=== PATIENT | female | born 1985 | race Caucasian/White ===

== ENCOUNTER 2019-09-13 07:49 | Emergency (ER) | payer MEDICAID ==
[~2019-09-13] VITALS: Ht 165.1 cm; Wt 55.0 kg
[2019-09-13] MEDS ORDERED: SODIUM CHLORIDE 0.9% 2,000 ML IV ONE (08:56)
[2019-09-13 09:10] LABS: BASOPHILS % 0.5 % (0.0-2.0); EOSINOPHILS % 0.1 % (0.0-5.0); HEMATOCRIT. 36.4 % (36.0-48.0); LYMPHOCYTES % 15.1 % (20.0-50.0); MEAN CORPUSCULAR HEMOGLOBIN 26.3 pg (28.0-32.0); MEAN CORPUSCULAR VOLUME 79.4 fL (81.0-99.0); MEAN PLATELET VOLUME 8.4 fl (7.4-10.4); MONOCYTES % 10.6 % (2.0-8.0); NEUTROPHILS % 73.7 % (40.0-76.0); PLATELET 146 x1000/uL (130-400); RED BLOOD CELL COUNT 4.58 mill/uL (4.2-5.4); RED CELL DISTRIBUTION WIDTH 13.5 % (11.6-14.6)
[2019-09-13 09:16] LABS: CHLORIDE 98 mEq/L (98-107)
[2019-09-13 09:25] LABS: BETA HYDROXYBUTYRATE 0.2 mMol/L (0.0-0.3)
[2019-09-13] MEDS ORDERED: POTASSIUM CHLORIDE 20MEQ TABLET SR PO ONE (09:30)
[2019-09-13] MEDS ORDERED: SODIUM CHLORIDE 0.9% 1,000 ML IV ONE (09:30)
[2019-09-13] MEDS ORDERED: INSULIN REGULAR (HUMULIN R) 300UNITS/3ML SUBCUT ONE (09:30)
[2019-09-13 14:08] VITALS: BP 127/80
== END 2019-09-13 14:09 | disposition home or self-care (01) ==
LOC: ER 07:49
DX: E11.65 Type 2 diabetes mellitus with hyperglycemia (principal)
CPT/HCPCS: 36415; 80053; 82010; 82962; 83036; 85025; 93005; 96372; 99284; J1815; J7030

== ENCOUNTER 2022-03-14 05:02 | Inpatient (IN) | payer MEDICAID, OTHER ==
[~2022-03-14] VITALS: Ht 162.6 cm; Wt 72.6 kg
[2022-03-14] MEDS ORDERED: DEXTROSE 50% WATER 50ML SYRINGE IV ONE ×2 (05:30→05:31)
[2022-03-14] MEDS ORDERED: IOHEXOL-350 100 ML BOTTLE ONE (06:01)
[2022-03-14 06:23] LABS: BASOPHILS % 0.5 % (0.0-2.0); EOSINOPHILS % 0.7 % (0.0-5.0); HEMATOCRIT. 28.2 % (36.0-48.0); HEMOGLOBIN. 8.8 g/dL (12.0-16.0); LYMPHOCYTES % 15.9 % (20.0-50.0); MEAN CORPUSCULAR HEMOGLOBIN 22.4 pg (28.0-32.0); MEAN CORPUSCULAR VOLUME 71.7 fL (81.0-99.0); MEAN PLATELET VOLUME 7.2 fl (7.4-10.4); MONOCYTES % 5.9 % (2.0-8.0); PLATELET 305 x1000/uL (130-400); RED BLOOD CELL COUNT 3.93 mill/uL (4.2-5.4); RED CELL DISTRIBUTION WIDTH 14.9 % (11.6-14.6)
[2022-03-14 06:31] LABS: INR 0.9; PROTHROMBIN TIME 10.2 sec (9.6-11.0)
[2022-03-14 06:33] LABS: CHLORIDE 108 mEq/L (98-107)
[2022-03-14 06:43] LABS: HCG SCREEN NEGATIVE
[2022-03-14 06:44] LABS: ETHANOL BLOOD < 10 mg/dL
[2022-03-14] MEDS ORDERED: SODIUM CHLORIDE 0.9% 1000ML BAG (SEPSIS BOLUS) IV ONE (07:00)
[2022-03-14 07:25] LABS: CLARITY URINE TURBID (CLEAR); COLOR URINE DARK YELLOW (YELLOW); KETONES URINE NEGATIVE (NEGATIVE); LEUKOCYTE ESTERASE URINE TRACE (NEGATIVE); NITRITE URINE NEGATIVE (NEGATIVE); OCCULT BLOOD URINE 3+ (NEGATIVE); PH URINE 7.5 (4.5-8.0); PROTEIN URINE 3+ (NEGATIVE); SPECIFIC GRAVITY URINE 1.014 (1.005-1.030)
[2022-03-14] MEDS ORDERED: NITROGLYCERIN 0.4MG TABLET SL SL PRN (07:30)
[2022-03-14] MEDS ORDERED: ONDANSETRON HCL 4MG/2ML INJ IV PRN (07:30)
[2022-03-14] MEDS ORDERED: DEXTROSE 50% WATER 50ML SYRINGE IV PRN (07:30)
[2022-03-14] MEDS ORDERED: CLONIDINE 0.1MG TABLET PO PRN (07:30)
[2022-03-14] MEDS ORDERED: ACETAMINOPHEN 325MG TABLET PO PRN ×2 (07:30)
[2022-03-14] MEDS ORDERED: GUAIFENESIN 200MG/10ML SUGAR FREE UDC PO PRN (07:30)
[2022-03-14] MEDS ORDERED: KETOROLAC 15MG/ML VIAL IV PRN (07:30)
[2022-03-14] MEDS ORDERED: IPRATROPIUM/ALBUTEROL 0.5-3(2.5)MG/3ML NEB NEB PRN (07:30)
[2022-03-14 07:41] LABS: *AMPHETAMINES SCREEN URINE NEGATIVE (NEGATIVE); *BARBITURATES SCREEN URINE NEGATIVE (NEGATIVE); *BENZODIAZEPINES SCREEN URINE NEGATIVE (NEGATIVE); *COCAINE SCREEN URINE NEGATIVE (NEGATIVE); CANNABINOID URINE SCREEN NEGATIVE (NEGATIVE); METHADONE URINE SCREEN NEGATIVE (NEGATIVE); OPIATES URINE SCREEN NEGATIVE (NEGATIVE); PHENCYCLIDINE URINE SCREEN NEGATIVE (NEGATIVE)
[2022-03-14] MEDS ORDERED: CEFTRIAXONE 2 G PREMIX 50 ML IV ONE (08:15)
[2022-03-14] MEDS: INSULIN LISPRO 100 UNITS/ML SUBCUT SCH ×4 (08:20→21:00)
[2022-03-14] MEDS ORDERED: DOCUSATE SODIUM 100MG CAPSULE PO PRN (09:00)
[2022-03-14] MEDS ORDERED: MAGNESIUM/ALUMINUM HYDROXIDE/SIMETHICONE 30ML UDC PO PRN (09:00)
[2022-03-14] MEDS ORDERED: CEFTRIAXONE 2 G in DEXTROSE 5% WATER 50 ML IV SCH (09:00)
[2022-03-14 09:01] LABS: T4 FREE 1.16 ng/dL (0.76-1.46)
[2022-03-14 09:23] LABS: VITAMIN B12 SERUM 336 pg/mL (211-911)
[2022-03-14] MEDS: BLOOD SUGAR DIAGNOSTIC STRIP TEST SCH ×4 (10:17→21:42)
[2022-03-14] MEDS: FAMOTIDINE 20MG TABLET PO SCH ×2 (10:59→20:54)
[2022-03-14] MEDS: ENOXAPARIN 40MG/0.4ML SYR SUBCUT SCH (10:59)
[2022-03-14] MEDS: AMLODIPINE 10MG TABLET PO SCH (10:59)
[2022-03-14] MEDS: ASPIRIN 325MG EC TABLET PO SCH (10:59)
[2022-03-14 14:01] VITALS: BP 141/51
[2022-03-14] MEDS ORDERED: INSU100I28 SQ (14:18)
[2022-03-14] MEDS ORDERED: INSLIS SUBCUT (14:18)
[2022-03-14] MEDS ORDERED: METF500T60 PO (14:18)
[2022-03-14] MEDS ORDERED: ATOR20TA65 PO (14:18)
[2022-03-14] MEDS ORDERED: LISI20TA31 PO (14:18)
[2022-03-14] MEDS ORDERED: FERR15DR7 PO (14:18)
[2022-03-14 14:30] VITALS: BP 141/51
[2022-03-14 16:00] VITALS: BP 150/65
[2022-03-14] MEDS ORDERED: IPRATROPIUM BROMIDE (0.02%) 0.5MG/2.5ML NEB HHN PRN (18:15)
[2022-03-14] MEDS ORDERED: ALBUTEROL (0.083%) 2.5MG/3ML NEB HHN PRN (18:15)
[2022-03-14 20:00] VITALS: BP 121/58
[2022-03-14] MEDS ORDERED: TIMO5DRO32 EACHEYE (20:07)
[2022-03-14] MEDS ORDERED: BRIN8DRO RIGHTEYE (20:07)
[2022-03-14] MEDS ORDERED: PRED5DRO22 RIGHTEYE (20:07)
[2022-03-14] MEDS ORDERED: OFLO5DRO3 RIGHTEYE (20:07)
[2022-03-14] MEDS ORDERED: BIMA2.5D4 RIGHTEYE (20:07)
[2022-03-14] MEDS ORDERED: NON FORMULARY PATIENT HOME MED XX SCH ×2 (20:30)
[2022-03-14] MEDS ORDERED: ZOLPIDEM TARTRATE 5MG TABLET PO PRN (21:00)
[2022-03-14] MEDS: TIMOLOL MALEATE 0.5% OPHTH DROPS 5ML RIGHTEYE SCH (21:40)
[2022-03-14] MEDS: PREDNISOLONE ACETATE 1% OPHTH DROPS 5ML RIGHTEYE SCH (21:40)
[2022-03-15] VITALS: BP_SYST 119; BP_SYST 141; BP_DIAS 61; BP_DIAS 78
[2022-03-15 00:16] LABS: CREATINE KINASE MB FRACTION 3.1 ng/mL (0.5-3.6)
[2022-03-15 04:00] VITALS: BP 110/58
[2022-03-15] MEDS: INSULIN LISPRO 100 UNITS/ML SUBCUT SCH (05:39)
[2022-03-15] MEDS: BLOOD SUGAR DIAGNOSTIC STRIP TEST SCH (05:40)
[2022-03-15 08:00] VITALS: BP 119/50
[2022-03-15 08:07] LABS: BASOPHILS % 0.6 % (0.0-2.0); EOSINOPHILS % 0.9 % (0.0-5.0); LYMPHOCYTES % 26.9 % (20.0-50.0); MEAN CORPUSCULAR HEMOGLOBIN 22.2 pg (28.0-32.0); MEAN CORPUSCULAR VOLUME 70.1 fL (81.0-99.0); MEAN PLATELET VOLUME 7.2 fl (7.4-10.4); MONOCYTES % 7.8 % (2.0-8.0); NEUTROPHILS % 63.8 % (40.0-76.0); PLATELET 266 x1000/uL (130-400); RED BLOOD CELL COUNT 3.13 mill/uL (4.2-5.4); RED CELL DISTRIBUTION WIDTH 14.5 % (11.6-14.6)
[2022-03-15 08:24] LABS: CHLORIDE 112 mEq/L (98-107)
[2022-03-15 08:37] LABS: PHOSPHORUS 3.6 mg/dL (2.5-4.9)
[2022-03-15] MEDS ORDERED: INSLIS SUBCUT (08:37)
[2022-03-15] MEDS: FAMOTIDINE 20MG TABLET PO SCH (08:45)
[2022-03-15] MEDS: ASPIRIN 325MG EC TABLET PO SCH (08:45)
[2022-03-15] MEDS: ENOXAPARIN 40MG/0.4ML SYR SUBCUT SCH (08:47)
[2022-03-15] MEDS: PREDNISOLONE ACETATE 1% OPHTH DROPS 5ML RIGHTEYE SCH (08:50)
[2022-03-15] MEDS: AMLODIPINE 10MG TABLET PO SCH (08:50)
[2022-03-15] MEDS: TIMOLOL MALEATE 0.5% OPHTH DROPS 5ML RIGHTEYE SCH (08:51)
[2022-03-15] MEDS ORDERED: NON FORMULARY PATIENT HOME MED XX SCH (09:00)
[2022-03-15 09:56] VITALS: BP 119/50
[2022-03-15] MEDS ORDERED: IRON SUCROSE COMPLEX 100 MG/5 ML ML IV SCH (10:00)
== END 2022-03-15 11:25 | disposition home or self-care (01) | DRG 420 ==
LOC: ER 05:02 → 8WST 06:21 → EDBEDREQSVC 09:16
PROVIDERS: ADMIT Internal Medicine; ATTEND Internal Medicine
DX: E11.649 Type 2 diabetes mellitus with hypoglycemia without coma (principal); G93.41 Metabolic encephalopathy; E43 Unspecified severe protein-calorie malnutrition; I50.30 Unspecified diastolic (congestive) heart failure; I11.0 Hypertensive heart disease with heart failure; Z20.822 Contact with and (suspected) exposure to COVID-19; D63.8 Anemia in other chronic diseases classified elsewhere; E11.65 Type 2 diabetes mellitus with hyperglycemia; Z79.4 Long term (current) use of insulin; Z68.27 Body mass index [BMI] 27.0-27.9, adult; Z82.49 Family history of ischemic heart disease and other diseases of the circulatory system
CPT/HCPCS: 36415; 70496; 70551; 71045; 80053; 80061; 80305; 80320; 81003; 82550; 82553; 82607; 82746; 82962; 83036; 83540; 83550; 83605; 83735; 83880; 84100; 84439; 84443; 84484; 84703; 85025; 87426; 93005; 93306; 93970; 99291; J0696; J1650; J7030; J7060; Q9967; G0480

== ENCOUNTER 2022-04-11 19:19 | Emergency (ER) | payer OTHER ==
[~2022-04-11] VITALS: Ht 165.1 cm; Wt 70.0 kg
[~2022-04-11 19:19] MED LIST: ATOR20TA65 PO; BIMA2.5D4 RIGHTEYE; BRIN8DRO RIGHTEYE; FERR15DR7 PO; INSLIS SUBCUT; INSU100I28 SQ; LISI20TA31 PO; METF500T60 PO; PRED5DRO22 RIGHTEYE; TIMO5DRO32 EACHEYE
[2022-04-11 19:25] VITALS: BP 165/89
== END 2022-04-12 | disposition left against medical advice (07) ==
LOC: ER 19:19
DX: Z53.21 Procedure and treatment not carried out due to patient leaving prior to being seen by health care provider (principal); E11.9 Type 2 diabetes mellitus without complications
CPT/HCPCS: 82962

== ENCOUNTER 2023-06-25 01:13 | Inpatient (IN) | payer MEDICAID, OTHER ==
[~2023-06-25] VITALS: Ht 309.9 cm; Wt 78.0 kg
[2023-06-25 02:31] LABS: DIFFERENTIAL COMMENT 0; EOSINOPHILS % 1.3 % (0.0-5.0); HEMOGLOBIN. 8.4 g/dL (12.0-16.0); LYMPHOCYTES % 23.7 % (20.0-50.0); MEAN CORPUSCULAR HEMOGLOBIN 23.1 pg (28.0-32.0); MEAN CORPUSCULAR HGB CONC 31.2 g/dL (31.0-37.0); MEAN CORPUSCULAR VOLUME 73.9 fL (81.0-99.0); MEAN PLATELET VOLUME 8.2 fl (7.4-10.4); MONOCYTES % 10.1 % (2.0-8.0); NEUTROPHILS % 63.9 % (40.0-76.0); PLATELET 137 x1000/uL (130-400); RED BLOOD CELL COUNT 3.66 mill/uL (4.2-5.4); RED CELL DISTRIBUTION WIDTH 17.5 % (11.6-14.6); WHITE BLOOD COUNT 4.2 x1000/uL (4.5-11.0)
[2023-06-25 02:33] LABS: CHLORIDE 110 mEq/L (98-107); POTASSIUM 3.7 mEq/L (3.5-5.1); SODIUM 139 mEq/L (136-145)
[2023-06-25 02:34] LABS: CARBON DIOXIDE 23 mEq/L (21-32)
[2023-06-25 02:35] LABS: CALCIUM 8.1 mg/dL (8.7-10.4); HCG SCREEN NEGATIVE
[2023-06-25 02:38] LABS: BG BASE EXCESS -4.4 mmol/L (-2.0-2.0); BG CARBOXYHEMOGLOBIN 0.1 % (0.5-1.5); BG DEOXYHEMOGLOBIN 5.8 % (0.0-5.0); BG FRACTION INSPIRED OXYGEN 21; BG HCO3 ACT 20.9 mmol/L (22.0-26.0); BG METHEMOGLOBIN 0.3 % (0.0-1.5); BG OXYGEN SATURATION 94.2 % (92.0-98.5); BG OXYHEMOGLOBIN 93.8 % (94.0-97.0); BG PCO2 39.2 mmHg (35.0-45.0); BG PH 7.344 (7.350-7.450); BG PO2 74.4 mmHg (75.0-100.0); BG SAMPLE SITE LEFT RADIAL; BG TOTAL HEMOGLOBIN 8.8 g/dL (12.0-18.0); BG VENT MODE ROOM AIR
[2023-06-25 02:39] LABS: CREATININE 2.2 mg/dL (0.6-1.0); GLUCOSE 149 mg/dL (70-105)
[2023-06-25 02:40] LABS: UREA NITROGEN BLOOD 26 mg/dL (9-23)
[2023-06-25 02:51] LABS: TROPONIN I HIGH SENSITIVITY 42 ng/L (3.0-34)
[2023-06-25] MEDS: FUROSEMIDE 40MG/4ML VIAL IV ONE (03:13)
[2023-06-25 04:49] LABS: TROPONIN I HIGH SENSITIVITY 38 ng/L (3.0-34)
[2023-06-25 11:00] VITALS: BP 149/93; PULSE 66; RESP 19; TEMP 97.7
[2023-06-25 12:00] VITALS: BP 149/93; PULSE 66; RESP 18; TEMP 97.7
[2023-06-25] MEDS ORDERED: ONDANSETRON HCL 4MG/2ML INJ IV PRN (12:00)
[2023-06-25] MEDS ORDERED: ACETAMINOPHEN 325MG TABLET PO PRN (12:00)
[2023-06-25] MEDS: FUROSEMIDE 40MG/4ML VIAL IVP SCH (12:45)
[2023-06-25] MEDS: AMLODIPINE 10MG TABLET PO SCH (12:45)
[2023-06-25] MEDS ORDERED: DEXTROSE 50% WATER 50ML SYRINGE IV PRN (13:30)
[2023-06-25] MEDS: INSULIN LISPRO 100 UNITS/ML SUBCUT SCH (13:30)
[2023-06-25] MEDS: BLOOD SUGAR DIAGNOSTIC STRIP TEST SCH (13:30)
[2023-06-25 16:00] VITALS: BP 149/101; PULSE 68; RESP 14; TEMP 97.9
[2023-06-25 18:03] LABS: HEPATITIS B SURFACE ANTIGEN NEGATIVE (Negative)
[2023-06-25 18:25] LABS: HEPATITIS C AB NON REACTIVE (Neg) (Negative)
[2023-06-25 20:00] VITALS: BP 153/58; PULSE 66; RESP 14; TEMP 98
[2023-06-26 00:05] VITALS: BP 137/69; PULSE 70; RESP 24; TEMP 98.1
[2023-06-26 04:00] VITALS: BP 133/73; PULSE 70; RESP 20; TEMP 98
[2023-06-26 05:50] LABS: CLARITY URINE CLOUDY (CLEAR); COLOR URINE DARK YELLOW (YELLOW); GLUCOSE URINE 1+ (NEGATIVE); KETONES URINE NEGATIVE (NEGATIVE); LEUKOCYTE ESTERASE URINE TRACE (NEGATIVE); NITRITE URINE NEGATIVE (NEGATIVE); OCCULT BLOOD URINE 2+ (NEGATIVE); PROTEIN URINE 3+ (NEGATIVE); SPECIFIC GRAVITY URINE 1.011 (1.005-1.030); UROBILINOGEN URINE 0.2 E.U./dL (0.2-1.0)
[2023-06-26 06:34] LABS: SQUAMOUS EPITHELIAL CELL URINE 1+ /lpf (RARE/1+)
[2023-06-26 06:35] LABS: BACTERIA URINE 2+
[2023-06-26 06:36] LABS: YEAST URINE 2+
[2023-06-26 07:12] LABS: POTASSIUM 3.8 mEq/L (3.5-5.1)
[2023-06-26 07:18] LABS: CREATININE 1.9 mg/dL (0.6-1.0)
[2023-06-26 08:00] VITALS: BP 155/73; PULSE 68; RESP 14; TEMP 97.7
[2023-06-26 11:31] LABS: CREATINE KINASE 129 IU/L (34-145)
[2023-06-26 12:00] VITALS: BP 148/93; PULSE 66; RESP 16; TEMP 98
[2023-06-26 15:05] LABS: CREATININE URINE RANDOM 28.1 mg/dL
[2023-06-26 16:00] VITALS: BP 124/76; PULSE 63; RESP 15; TEMP 98
[2023-06-26 20:00] VITALS: BP 137/80; PULSE 64; RESP 16; TEMP 98.1
[2023-06-27] VITALS: BP 124/68; PULSE 65; RESP 12; TEMP 98
[2023-06-27 04:50] VITALS: BP 151/75; PULSE 67; RESP 23; TEMP 98.1
[2023-06-27 07:28] LABS: POTASSIUM 3.6 mEq/L (3.5-5.1)
[2023-06-27 07:29] LABS: CALCIUM 7.7 mg/dL (8.7-10.4)
[2023-06-27 07:34] LABS: CREATININE 1.6 mg/dL (0.6-1.0)
[2023-06-27 07:35] LABS: ALBUMIN 2.7 g/dL (3.2-4.8)
[2023-06-27 07:37] LABS: BASOPHILS % 1.1 % (0.0-2.0); DIFFERENTIAL COMMENT 0; EOSINOPHILS % 3.9 % (0.0-5.0); HEMATOCRIT. 27.2 % (36.0-48.0); HEMOGLOBIN. 8.5 g/dL (12.0-16.0); LYMPHOCYTES % 26.7 % (20.0-50.0); MEAN CORPUSCULAR HEMOGLOBIN 23.2 pg (28.0-32.0); MEAN CORPUSCULAR HGB CONC 31.2 g/dL (31.0-37.0); MEAN CORPUSCULAR VOLUME 74.2 fL (81.0-99.0); MEAN PLATELET VOLUME 7.7 fl (7.4-10.4); MONOCYTES % 8.1 % (2.0-8.0); NEUTROPHILS % 60.2 % (40.0-76.0); PLATELET 143 x1000/uL (130-400); RED BLOOD CELL COUNT 3.67 mill/uL (4.2-5.4); RED CELL DISTRIBUTION WIDTH 18.6 % (11.6-14.6); WHITE BLOOD COUNT 4.7 x1000/uL (4.5-11.0)
[2023-06-27 08:00] VITALS: BP 147/64; PULSE 70; RESP 10; TEMP 98
[2023-06-27] MEDS: LOSARTAN 50 MG TABLET PO SCH (09:29)
[2023-06-27] MEDS: POTASSIUM CHLORIDE 20MEQ/PACKET PO SCH (09:29)
[2023-06-27 12:00] VITALS: BP 145/79; PULSE 71; RESP 13; TEMP 98.2
[2023-06-27] MEDS: CEFTRIAXONE 1GM/50ML 50 ML IV SCH (15:59)
[2023-06-27 16:00] VITALS: BP 115/68; PULSE 68; RESP 14; TEMP 98.3
[2023-06-27 20:00] VITALS: BP 135/73; PULSE 71; RESP 17; TEMP 97.7
[2023-06-27] MEDS: INSULIN GLARGINE 100 UNITS/ML SUBCUT SCH (22:22)
[2023-06-28] VITALS: BP 135/71; PULSE 71; RESP 11; TEMP 97.8
[2023-06-28 04:00] VITALS: BP 138/77; PULSE 73; RESP 15; TEMP 97.8
[2023-06-28 07:05] LABS: BASOPHILS % 0.9 % (0.0-2.0); DIFFERENTIAL COMMENT 0; EOSINOPHILS % 3.9 % (0.0-5.0); HEMATOCRIT. 26.7 % (36.0-48.0); HEMOGLOBIN. 8.3 g/dL (12.0-16.0); LYMPHOCYTES % 20.5 % (20.0-50.0); MEAN CORPUSCULAR HEMOGLOBIN 23.3 pg (28.0-32.0); MEAN CORPUSCULAR HGB CONC 31.2 g/dL (31.0-37.0); MEAN CORPUSCULAR VOLUME 74.4 fL (81.0-99.0); MEAN PLATELET VOLUME 7.5 fl (7.4-10.4); MONOCYTES % 7.1 % (2.0-8.0); NEUTROPHILS % 67.6 % (40.0-76.0); PLATELET 168 x1000/uL (130-400); RED BLOOD CELL COUNT 3.59 mill/uL (4.2-5.4); WHITE BLOOD COUNT 5.2 x1000/uL (4.5-11.0)
[2023-06-28 07:11] LABS: CHLORIDE 110 mEq/L (98-107); SODIUM 141 mEq/L (136-145)
[2023-06-28 07:12] LABS: CARBON DIOXIDE 25 mEq/L (21-32)
[2023-06-28 07:17] LABS: CREATININE 1.2 mg/dL (0.6-1.0); GLUCOSE 168 mg/dL (70-105); UREA NITROGEN BLOOD 23 mg/dL (9-23)
[2023-06-28 08:00] VITALS: BP 127/67; PULSE 78; RESP 16; TEMP 97.9
[2023-06-28] MEDS ORDERED: LOSA50TA41 PO (10:07)
[2023-06-28] MEDS ORDERED: AMLO10TA80 PO (10:07)
[2023-06-28 10:20] VITALS: BP 127/67; PULSE 74; TEMP 98.2; O2SAT 98
[2023-06-29 09:06] LABS: COMPLEMENT C3 160 mg/dL (82-167); COMPLEMENT C4 42 mg/dL (12-38)
[2023-06-29 13:06] LABS: ANTI-NUCLEAR ANTIBODIES DIRECT Positive (Negative)
== END 2023-06-28 11:14 | disposition home or self-care (01) | DRG 194 ==
LOC: ER 01:13 → 5WST 05:35 → EDBEDREQTM 05:47 → EDBEDREQ 05:47 → 5WST 09:27 → 3WST 11:26
PROVIDERS: ADMIT Internal Medicine; ATTEND Internal Medicine
DX: I13.0 Hypertensive heart and chronic kidney disease with heart failure and stage 1 through stage 4 chronic kidney disease, or unspecified chronic kidney disease (principal); N17.0 Acute kidney failure with tubular necrosis; E11.22 Type 2 diabetes mellitus with diabetic chronic kidney disease; E66.9 Obesity, unspecified; D64.9 Anemia, unspecified; E78.00 Pure hypercholesterolemia, unspecified; Z68.1 Body mass index [BMI] 19.9 or less, adult; I50.33 Acute on chronic diastolic (congestive) heart failure; N18.1 Chronic kidney disease, stage 1; N39.0 Urinary tract infection, site not specified; Z82.49 Family history of ischemic heart disease and other diseases of the circulatory system; Z98.891 History of uterine scar from previous surgery; Z79.899 Other long term (current) drug therapy
CPT/HCPCS: 36415; 36600; 71045; 76770; 80048; 80061; 81003; 82040; 82375; 82550; 82570; 82805; 82962; 83605; 83880; 84156; 84484; 84703; 85025; 86038; 86160; 86705; 87340; 93005; 93306; 93970; 99291; J0696; J1815; J1940